=== PATIENT | female | born 1970 | race Caucasian/White ===

== ENCOUNTER 2021-09-22 21:24 | Emergency (ER) | payer MEDICARE ==
[2021-09-22] MEDS ORDERED: HYDROmorphone 0.5 MG/0.5 ML SYRINGE IVP STA (21:46)
[2021-09-22] MEDS ORDERED: ONDANSETRON 4 MG/2 ML VIAL IVP STA (21:47)
[2021-09-22] MEDS ORDERED: ACETAMINOPHEN TAB 325 MG TAB PO STA (21:57)
--- NOTE | 2021-09-22 21:57 | ED ---
General Adult HPI - General Chief complaint: Skin/Abscess/Foreign Body Stated complaint: Boil on Flank Time Seen by Provider: 09/22/21 21:45 Source: patient, RN notes reviewed, old records reviewed Mode of arrival: ambulatory Limitations: no limitations - History of Present Illness Initial comments: 51-year-old female presents to the emergency room with complaints of a abscess on her right buttock for the past 4 days. Patient states that it is increasing in size and becoming more tender. She is having difficulty sitting. She also complains of fever and nausea. She has a history of atrial fibrillation, diabetes, hypertension and stage 3 renal disease. 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 She is here from [place] for a . -: days(s) (4) Location: genitals (right labia), buttocks, right Severity scale (1-10): 8 Quality: sharp, constant Consistency: constant Improves with: none Worsens with: movement Associated Symptoms: fever/chills, nausea/vomiting Treatments Prior to Arrival: other (epson salt bath) - Related Data Previous Rx's Medication Instructions Recorded Doxycycline Monohydrate [Monodox] 100 mg PO Q12HR 7 Days #14 cap 09/23/21 Allergies Allergy/AdvReac Type Severity Reaction Status Date / Time adhesive tape Allergy Unknown Verified 09/22/21 21:30 metformin Allergy Unknown Verified 09/22/21 21:30 rifampin Allergy Unknown Verified 09/22/21 21:30 Review of Systems ROS Statement: Those systems with pertinent positive or pertinent negative responses have been documented in the HPI. ROS Other: All systems not noted in ROS Statement are negative. Past Medical History Past Medical History: Atrial Fibrillation, Asthma, Diabetes Mellitus, Hypertension, Renal Disease Additional Past Medical History / Comment(s): toxic shock syndrome, MS, History of Any Multi-Drug Resistant Organisms: None Reported, MRSA Date of last positivie culture/infection: 2004 MDRO Source:: unknown Past Surgical History: Section, Orthopedic Surgery Additional Past Surgical History / Comment(s): bilat below the knee amputation, fingers amputated bilat hands Past Psychological History: Anxiety Smoking Status: Former smoker Past Alcohol Use History: None Reported Past Drug Use History: None Reported General Exam Limitations: no limitations General appearance: alert, in no apparent distress Cardiovascular Exam: Present: regular rate Extremities exam: Present: other (Bilateral lower extremity amputee, amputations of all fingers of the left and right hand) Neurological exam: Present: alert, oriented X3 Psychiatric exam: Present: normal affect, normal mood Skin exam: Present: warm, dry, intact, erythema (Right buttock). Absent: cyanosis, diaphoretic, petechiae, pallor, mottled Course Vital Signs 09/22/21 21:30 Temperature 99.3 F Pulse Rate 79 Respiratory 20 Rate Blood Pressure 149/77 O2 Sat by Pulse 100 Oximetry Procedures - Incision & Drainage Consent Obtained: verbal consent Site: buttock (right) Anesthetic Used: lidocaine 1% (emla) I&D Cleaning Method: Alcohol Wipe Scalpel Used: #11 I&D Drainage Obtained: Pus, Blood Culture Obtained?: Yes Patient Tolerated Procedure: no complications Medical Decision Making - Medical Decision Making 51-year-old female presents to the emergency room with complaints of a abscess on her right buttock for the past 4 days. White blood cell count is 11.8. Glucose 378. She was given IV fluids. BUN 36 creatinine 2.1. GFR 26. CT without contrast was ordered related to her chronic kidney disease to evaluate for perirectal abscess. CT shows subcutaneous fluid over the buttocks and posterior right side consistent with cellulitis, there is an area thickness measuring 2.5 cm. There is no evidence of a perirectal abscess. Subcutaneous abscess developing at the junction of the thigh with the right buttock. EMLA cream and lidocaine used for I&D, culture sent. Patient was given a dose and prescribed doxycycline as a safe broad-spectrum treatment for cellulitis in chronic kidney disease. She was directed to use sitz baths or warm moist soaks compresses multiple times a day to keep wound draining. Return to the emergency room with any new or concerning symptoms including fevers, nausea, vomiting or increased pain. Patient and family members are agreeable to this plan of care. Case discussed with Dr. Ramirez - Lab Data Result diagrams: 09/22/21 Unknown 09/22/21 Unknown Lab Results 09/22/21 09/22/21 Range/Units Unknown Unknown WBC 11.8 H (3.8-10.6) k/uL RBC 4.30 (3.80-5.40) m/uL Hgb 11.8 (11.4-16.0) gm/dL Hct 37.3 (34.0-46.0) % MCV 86.8 (80.0-100.0) fL MCH 27.5 (25.0-35.0) pg MCHC 31.7 (31.0-37.0) g/dL RDW 14.6 (11.5-15.5) % Plt Count 329 (150-450) k/uL MPV 7.0 Neutrophils % 76 % Lymphocytes % 16 % Monocytes % 4 % Eosinophils % 2 % Basophils % 1 % Neutrophils # 9.0 H (1.3-7.7) k/uL Lymphocytes # 1.8 (1.0-4.8) k/uL Monocytes # 0.5 (0-1.0) k/uL Eosinophils # 0.2 (0-0.7) k/uL Basophils # 0.1 (0-0.2) k/uL Hypochromasia Slight Sodium 138 (137-145) mmol/L Potassium 4.3 (3.5-5.1) mmol/L Chloride 110 H (98-107) mmol/L Carbon Dioxide 18 L (22-30) mmol/L Anion Gap 10 mmol/L BUN 36 H (7-17) mg/dL Creatinine 2.13 H (0.52-1.04) mg/dL Est GFR (CKD-EPI)AfAm 30 (>60 ml/min/1.73 sqM) Est GFR (CKD-EPI)NonAf 26 (>60 ml/min/1.73 sqM) Glucose 378 H (74-99) mg/dL Calcium 8.7 (8.4-10.2) mg/dL Total Bilirubin 0.5 (0.2-1.3) mg/dL AST 18 (14-36) U/L ALT 11 (4-34) U/L Alkaline Phosphatase 122 (38-126) U/L Total Protein 6.0 L (6.3-8.2) g/dL Albumin 3.2 L (3.5-5.0) g/dL Disposition Clinical Impression: Abscess, Cellulitis Disposition: HOME SELF-CARE Condition: Good Instructions (If sedation given, give patient instructions): Cellulitis (ED), Abscess Incision and Drainage (ED), Sitz Bath (DC) Additional Instructions: Warm moist soaks at least twice a day to keep wound open and draining. Take antibiotics as prescribed and follow-up with your primary care doctor next week. Return to the emergency room with any new or concerning symptoms including increased pain, fevers or nausea vomiting. Also discuss with your primary care doctor your elevated blood glucose levels. Prescriptions: Doxycycline Monohydrate [Monodox] 100 mg PO Q12HR 7 Days #14 cap Is patient prescribed a controlled substance at d/c from ED?: No Referrals: Nonstaff,Physician [Primary Care Provider] - 1-2 days Time of Disposition: 01:38
[2021-09-22 23:10] LABS: Basophils # (A) 0.1 k/uL (0-0.2); Basophils % (A) 1 %; Eosinophils # (A) 0.2 k/uL (0-0.7); Eosinophils % (A) 2 %; HCT 37.3 % (34.0-46.0); HGB 11.8 gm/dL (11.4-16.0); Hypochromasia Slight; Lymphocytes # (A) 1.8 k/uL (1.0-4.8); Lymphocytes % (A) 16 %; MCH 27.5 pg (25.0-35.0); MCHC 31.7 g/dL (31.0-37.0); MCV 86.8 fL (80.0-100.0); Monocytes # (A) 0.5 k/uL (0-1.0); Monocytes % (A) 4 %; Neutrophils % (A) 76 %; Platelet Count 329 k/uL (150-450); RDW 14.6 % (11.5-15.5); WBC 11.8 k/uL (3.8-10.6)
[2021-09-22 23:36] LABS: Albumin 3.2 g/dL (3.5-5.0); Calcium 8.7 mg/dL (8.4-10.2); Potassium 4.3 mmol/L (3.5-5.1); Total Bilirubin 0.5 mg/dL (0.2-1.3)
[2021-09-22] MEDS ORDERED: HYDROmorphone 1 MG/ML 1 ML SYRINGE IVP STA (23:53)
[2021-09-22] MEDS ORDERED: SODIUM CHLORIDE 0.9% 1,000 ML IV ONE (23:58)
[2021-09-22] MEDS ORDERED: LIDOCAINE-PRILOCAINE 2.5-2.5% CREAM 5 GM TUBE TOPICAL STA (23:59)
--- NOTE | 2021-09-23 00:33 | CT ---
EXAMINATION TYPE: CT pelvis wo con DATE OF EXAM: 09/23/2021 COMPARISON: None HISTORY: Right Buttocks Pain CT DLP: 509.50 mGycm Automated exposure control for dose reduction was used. Images obtained from the iliac crests to the floor the pelvis without contrast. There is right hip prosthesis. Bladder distends smoothly. Uterus is intact there is no free fluid in the pelvis. There is subcutaneous edema over both buttocks. No perirectal fluid collection seen. Ther e is subcutaneous fluid involving the posterior right upper thigh. The lower extent of the fluid is n ot evaluated. No pelvic mass seen. There are sigmoid diverticula without evidence of diverticulitis. There are athe romatous changes in the iliac and femoral arteries. IMPRESSION: Subcutaneous fluid over the buttocks posteriorly and more on the right side and consistent with cellu litis. This is more severe on the right side and measures up to 2.5 cm in thickness. No evidence of a perirectal abscess. Subcutaneous abscess probably developing at the junction of the thigh with the r ight buttock.
[2021-09-23] MEDS ORDERED: ALBUTEROL HFA INHALER INHALATION STA (01:26)
[2021-09-23] MEDS ORDERED: DOXYCYCLINE 100 MG CAP PO STA (01:35)
[2021-09-23] MEDS ORDERED: ACET/COD 300 MG/30 MG STARTER PACK 6 TAB BTL PO STA (01:38)
[2021-09-23] MEDS ORDERED: BACITRACIN OINT 1 EACH PACKET TOPICAL ONE (02:21)
[2021-09-23 02:40] VITALS: BP 143/79; PULSE 75; RESP 16; TEMP 98.9
== END 2021-09-23 02:57 | disposition home or self-care (01) ==
LOC: EC 21:24
DX: L02.31 Cutaneous abscess of buttock (principal); L03.317 Cellulitis of buttock; I48.91 Unspecified atrial fibrillation; J45.909 Unspecified asthma, uncomplicated; I12.9 Hypertensive chronic kidney disease with stage 1 through stage 4 chronic kidney disease, or unspecified chronic kidney disease; E11.22 Type 2 diabetes mellitus with diabetic chronic kidney disease; N18.30 Chronic kidney disease, stage 3 unspecified; F41.9 Anxiety disorder, unspecified; Z87.891 Personal history of nicotine dependence
CPT/HCPCS: 99284; 96374; 96375; 96376; 96361; 10060; 36415; 80053; 85025; 87040; 87070; 87205; 72192; J2405; J1170 ×2